=== PATIENT | male | born 1980 | race Caucasian/White ===

== ENCOUNTER 2020-03-07 07:41 | Inpatient (IN) | payer OTHER ==
[~2020-03-07] VITALS: Ht 177.8 cm; Wt 82.0 kg
[2020-03-07] MEDS ORDERED: SODIUM CHLORIDE 0.9% 1,000 ML IV ONE ×2 (08:01)
[2020-03-07 08:22] LABS: Basophils # (auto) 0 10 ^3/uL (0-0.2); Basophils % (auto) 0.3 % (0.0-2.0); Eosinophils # (auto) 0.1 10 ^3/uL (0-0.8); Eosinophils % (auto) 0.6 % (0.0-7.0); Hematocrit 47.1 % (41.0-53.0); Hemoglobin 16.1 g/dL (13.5-17.5); Lymphocytes # (auto) 1.3 10 ^3/uL (0.4-5.4); Lymphocytes % (auto) 9.7 % (10.0-50.0); Mean Corpuscular Hemoglobin 31.7 pg (28.0-32.0); Mean Corpuscular Hgb Conc. 34.2 g/dL (32.0-36.0); Mean Corpuscular Volume 92.7 fL (80.0-100.0); Monocytes % (auto) 7.4 % (0.0-12.0); Nucleated Red Blood Cells % 0.1 %; Platelet Count (auto) 311 10^3/uL (140-450); Red Blood Cells 5.08 10^6/uL (4.5-5.90); Red Cell Distribution Width 13.2 % (11.8-14.3); White Blood Cell 13.5 10^3/uL (4.4-10.8)
[2020-03-07 08:36] LABS: Albumin 4.5 g/dL (3.4-5.0); Anion Gap 7 (5-15); Blood Urea Nitrogen 8 mg/dL (7-18); Calcium 9.3 mg/dL (8.5-10.1); Carbon Dioxide 27 mmol/L (21-32); Chloride 104 mmol/L (98-107); Glucose 119 mg/dL (74-106); Magnesium 2.6 mg/dL (1.6-2.6); Potassium 3.8 mmol/L (3.5-5.1); Sodium 138 mmol/L (136-145)
[2020-03-07 08:41] LABS: Alanine Aminotransferase 26 U/L (16-61); Alkaline Phosphatase 56 U/L (45-117); Aspartate Aminotransferase 16 U/L (15-37); BUN/Creatinine Ratio 8.4; Bilirubin, Total 0.5 mg/dL (0.2-1.0); GFR African American 114 mL/min; GFR Non-African American 94 mL/min; Total Protein 7.7 g/dL (6.4-8.2)
[2020-03-07] MEDS ORDERED: TETANUS-DIPTH-ACEL PERTUSSIS 0.5ML SYR Tdap IM ONE (09:15)
[2020-03-07] MEDS ORDERED: LIDOCAINE 1% HCL (LOCAL ANESTH.) INJ 20ML MDV ONE (10:27)
[2020-03-07] MEDS ORDERED: MORPHINE SULF INJ 2 MG/ML SYRINGE 1ML IV ONE (10:30)
[2020-03-07] MEDS ORDERED: ONDANSETRON HCL 4 MG/2 ML VIAL IV ONE (10:30)
[2020-03-07] MEDS ORDERED: LIDOCAINE 1% HCL (LOCAL ANESTH.) INJ 20ML MDV ID ONE (10:30)
[2020-03-07] MEDS ORDERED: MORPHINE SULF INJ 2 MG/ML SYRINGE 1ML IV PRN ×2 (14:00)
[2020-03-07] MEDS ORDERED: ONDANSETRON HCL 4 MG/2 ML VIAL IV PRN (14:00)
[2020-03-07] MEDS ORDERED: HYDROcodone-ACET 5/325MG TAB PO PRN (14:00)
[2020-03-07] MEDS ORDERED: ACETAMINOPHEN 500 MG TAB PO PRN (14:00)
[2020-03-07] MEDS ORDERED: NITROGLYCERIN 0.4 MG SL TAB SL PRN (14:00)
[2020-03-07] MEDS ORDERED: hydrALAZINE HCL 20 MG/ML VL IV PRN (14:30)
--- NOTE | 2020-03-07 17:40 | NUR ---
Telemetry admit from [facility] admitted to Telemetry unit. NO SBAR received. Patient oriented to CARLI CHAUHAN, primary RN, unit, room, bed, and unit policies regarding patient care and visiting hours. Looked at small laceration to posterior head. Hard to see due to being covered by hair. Patient would not answer any admission questions. He asked about visitors and was informed that visitors were not allowed in the hospital at this time due to the pandemic. Instead of answering any admission questions, he asked about going outside to smoke. He had previously signed the AMA form to go outside to smoke. This nurse and the marketing community liaison informed the patient that he is allowed to be outside for 30 minutes, after which time he is considered to have left AMA and will have to go back through the ED if he wishes to stay in the hospital. The patient seemed very restless and impatient and was waiting for someone. A call came into the room while this nurse was in there and he spoke vaguely to someone and told them to "meet him where they met earlier". He kept pacing in the room and looking out the window prior to this phone call. He stated he was going outside to smoke and would not be gone longer than 30 minutes. After leaving to go smoke, security was called to check and make sure he was not doing anything illegal while outside meeting someone.
--- NOTE | 2020-03-07 18:48 | NUR ---
Returned to room Patient returned to his room and allowed this nurse to conduct the admission. Skin is intact except for laceration to the back of the head. Patient is alert and oriented, but seems very distracted. Did not answer questions in a timely manner. He kept looking at his phone and saying "uh... uhm..." and some questions were not answered directly. When asked how many cigarettes he smokes daily, he stated it changes. Asked for average and he was unable/unwilling to answer with a number. He kept asking for his phone and then asking to put in on the chair our of reach until this nurse said he should keep it close to himself where he can reach it conveniently. He was able to answer where he was, why he is here, time, date.
--- NOTE | 2020-03-07 20:00 | NUR ---
Opening Shift Note Assumed care of patient. Awake, alert and oriented x4. No S/S of distress/SOB or pain. Patient somewhat reluctant to answer questions and is slow to respond. Laceration to right side of head seen. Wound photos will be taken. Instructed on POC and to call for assist PRN. Bed locked, in lowest position, call light within reach, side rails up x2. Will continue to monitor for changes Q1hr and PRN.
[2020-03-07] MEDS ORDERED: LORazepam 2MG/ML-1ML VIAL IV PRN (20:15)
--- NOTE | 2020-03-07 21:25 | NUR ---
Wound photo taken Laceration to right side of head. Robbins can be seen. Wound consult made
[2020-03-07 22:00] VITALS: BP 147/92
[2020-03-08 05:00] VITALS: BP 144/79
--- NOTE | 2020-03-08 07:25 | NUR ---
MRI SPOKE WITH ADOLFO FROM MRI. PER ADOLFO; PATIENT WILL BE TRANSPORTED TO MRI SOON.
--- NOTE | 2020-03-08 07:30 | NUR ---
Opening Shift Note Assumed care of patient, asleep. even unlabored respirations. No S/S of distress/SOB or pain. Bed in lowest locked position, bed rails upx2, call light within reach. Awoke patient to inform him of MRI. Patient suspicious asked "Why did you wake me up?" Educated patient of MRI. Patient stated "You are asking too many questions! Why are you asking me?" Educated patient one more time of MRI. Patient said "Can we not do this?" Instructed patient to use call light if he needs assistance. Patient verbalized understanding. Will continue to monitor
--- NOTE | 2020-03-08 07:41 | NUR ---
Closing shift note Care endorsed to day shift RN. No S/S of distress, SOB or pain noted
--- NOTE | 2020-03-08 08:20 | NUR ---
DR CAREY PATINO AWARE PATIENT AWAITING MRI. WILL CONTINUE TO MONITOR
[2020-03-08 08:55] VITALS: BP 119/71
--- NOTE | 2020-03-08 09:05 | NUR ---
TELE PER JAI; PATIENT OFF TELE. PATIENT OFF SINCE APPROXIMATELY 8:25AM. PAGED PATIENT TO RETURN TO ROOM OVERHEAD. PAGED SECURITY. AWAITING RETURN CALL
--- NOTE | 2020-03-08 09:10 | NUR ---
SECURITY PAGED SECURITY RE: PATIENT OFF UNIT SINCE 8:25 PER TELE MONITOR JAI. GAVE DESCRIPTION TO BITA CONCRETE MIXER.
--- NOTE | 2020-03-08 09:35 | NUR ---
[facility] OFFICE REPORTED PATIENT'S ELOPEMENT FROM HOSPITAL WITH IV TO RFA AND TELE BOX #[id number]. SPOKE WITH DISPATCHER, DECEMBER. INCIDENT REPORT #[id number]. PER DECEMBER S.O. WILL MAKE AN AREA CHECK. WILL CONTINUE TO MONITOR
[2020-03-08] MEDS ORDERED: FAMOTIDINE 20 MG TAB PO SCH (10:00)
--- NOTE | 2020-03-08 10:05 | NUR ---
ON UNIT PATIENT RETURNED TO UNIT WITH [employer] SCRATCHERS. PATIENT STATED "HE NEEDED TO GO BACK DOWN STAIRS FOR HIS PHONE." PATIENT DENIED PAIN, NO S/S OF DISTRESS, SOB. PATIENT FLAT AFFECT. ASSISTED PATIENT TO ROOM WITH HERBARIUM WORKER, AND GLENN REDDING. REMOVED IV CATHETER INTACT AND TELE BOX RETURNED TO ICU. HERBARIUM WORKER INFORMED THE PATIENT THAT HE HAD BEEN OFF THE UNIT TOO LONG AND PER HOSPITAL PROTOCOL HE HAS BEEN DISCHARGED. PATIENT VERBALIZED UNDERSTANDING. PATIENT ESCORTED OFF UNIT WITH ALL BELONGINGS BY SECURITY.
--- NOTE | 2020-03-08 10:25 | NUR ---
[facility] OFFICE INFORMED S.O. THAT PATIENT HAD RETURNED WITH IV AND TELE BOX.
--- NOTE | 2020-03-08 10:55 | NUR ---
TRANSPORTATION GLENN REDDING WITNESSED PATIENT WALKING THRU PARKING LOT AT THE MAIN ENTRANCE AND GET INTO A WHITE CAR THAT DROVE OFF
--- NOTE | 2020-03-08 11:15 | NUR ---
MD DR Jaime HODGES AWARE OF PATIENT'S EVENTS FROM THIS MORNING. DR Jaime HODGES INFORMED THIS RN TO NOTE PATIENT LEFT PRIOR TO HIS ASSESSMENT.
== END 2020-03-08 10:05 | disposition left against medical advice (07) | DRG 605 ==
LOC: ER 07:41 → EDBD 07:41 → TELE 07:42 → TELE-CENTR 17:40
PROVIDERS: ADMIT Nurse Practitioner Acute Care; ATTEND Family Medicine
DX: S01.01XA Laceration without foreign body of scalp, initial encounter (principal); T79.7XXA Traumatic subcutaneous emphysema, initial encounter; E86.0 Dehydration; F12.90 Cannabis use, unspecified, uncomplicated; F17.210 Nicotine dependence, cigarettes, uncomplicated; I10 Essential (primary) hypertension; M53.82 Other specified dorsopathies, cervical region; M77.9 Enthesopathy, unspecified; Z90.49 Acquired absence of other specified parts of digestive tract; W18.39XA Other fall on same level, initial encounter; Y93.89 Activity, other specified; Y92.89 Other specified places as the place of occurrence of the external cause
CPT/HCPCS: 12002; 36415; 70450; 71045; 72125; 80053; 83735; 84443; 84484; 85025; 90715; 93306; G0378; J2001